=== PATIENT | female | born 2000 | race Caucasian/White ===

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

== ENCOUNTER → 2020-03-31 | Outpatient (CLI) | payer OTHER ==
[~2020-03-31] MED LIST changes: +PROM25 PO
== END | disposition home or self-care (01) ==
LOC: LAB SHORT 16:19 → LAB 16:19
DX: R30.0 Dysuria (principal)
CPT/HCPCS: 87086

== ENCOUNTER → 2020-04-15 | Outpatient (CLI) | payer OTHER ==
[~2020-04-15] MED LIST changes: +Percocet 5-3251 EACH PO
--- NOTE | 2020-05-16 14:16 | NUR ---
PPFU R/S MOM 45 MINUTES LATE FOR PPFU APPT. I SAW BABY TODAY AND MOM WAS RESCHEDULED FOR TOMOROW WITH BABY AT 2430
== END | disposition home or self-care (01) ==
LOC: LAB SHORT 16:15 → LAB 16:15
DX: R82.90 Unspecified abnormal findings in urine (principal)
CPT/HCPCS: 87086

== ENCOUNTER → 2020-04-20 | Outpatient (CLI) | payer OTHER | END | disposition home or self-care (01) | LOC: LAB 17:29 → LAB SHORT 17:29 | DX: Z34.83 Encounter for supervision of other normal pregnancy, third trimester (principal) | CPT/HCPCS: 87081; 87653 ==

== ENCOUNTER → 2020-04-27 | Outpatient (CLI) | payer OTHER | END | disposition home or self-care (01) | LOC: LAB 15:30 → LAB SHORT 15:30 | DX: R82.90 Unspecified abnormal findings in urine (principal) | CPT/HCPCS: 87086 ==

== ENCOUNTER 2020-05-12 05:43 | Inpatient (IN) | payer OTHER ==
[~2020-05-12] VITALS: Ht 160 cm; Wt 115.6 kg
[~2020-05-12 05:43] MED LIST changes: -Percocet 5-3251 EACH PO
[2020-05-12 06:33] LABS: BASOPHILS ABSOLUTE AUTO 0.02 K/mm3 (0.00-0.23); BASOPHILS PERCENT AUTO 0 % (0-2); EOSINOPHILS ABSOLUTE AUTO 0.14 K/mm3 (0.00-0.68); EOSINOPHILS PERCENT AUTO 2 % (0-6); Hematocrit 33.1 % (33.0-51.0); IMMATURE GRAN ABSOLUTE AUTO 0.02 K/mm3 (0.00-0.10); IMMATURE GRAN PERCENT AUTO 0 % (0-1); LYMPHOCYTES ABSOLUTE AUTO 1.95 K/mm3 (0.84-5.20); LYMPHOCYTES PERCENT AUTO 22 % (21-46); MONOCYTES ABSOLUTE AUTO 0.93 K/mm3 (0.16-1.47); MONOCYTES PERCENT AUTO 11 % (4-13); Mean Corpuscular HGB 30.6 pg (26.0-34.0); Mean Corpuscular HGB Conc 33.2 g/dL (31.5-36.5); Mean Corpuscular Volume 92 fL (80-100); Mean Platelet Volume 10.6 fL (9.1-12.4); NEUTROPHILS ABSOLUTE AUTO 5.72 K/mm3 (1.96-9.15); NEUTROPHILS PERCENT AUTO 65 % (41-73); Platelet Count 233 K/mm3 (150-400); RDW Coefficient Variation 12.2 % (11.7-14.2); RDW Standard Deviation 41.1 fL (35.1-46.3); White Blood Cell Count 8.78 K/mm3 (4.00-11.30)
--- NOTE | 2020-05-12 08:25 | NUR ---
05/12/20 0825 Atiya Sneed 0800 DELIVERY VIABLE MALE WEIGHT [id number] 7# 13 OZ, HEAD 14 INCHES, CHEST 14 INCHES, CHEST 13.75 INCHES, LENGTH 21 INCHES, APGARS 7/8, UMBILICAL CORD BLOOD COLLECTED FOR TYPE AND RH GIVEN TO Mau LEE RN, DR BURNS AND DR DIXON (RESIDENTS) PRESENT FOR DELIVERY
[2020-05-12 08:34] LABS: PCO2 Cord - Arterial 42 mmHg (40-50); PO2 Cord - Arterial 18 mmHg (16-20); pH Cord - Arterial 7.36 (7.28-7.35)
[2020-05-12 08:36] LABS: PCO2 Cord - Venous 42 mmHg (40-50); PO2 Cord - Venous 26 mmHg (28-32); pH Umbilical Cord - Venous 7.34 (7.26-7.35)
--- NOTE | 2020-05-12 14:33 | NUR ---
RN ROUNDED TO HELP W/ . INSTRUCT/DEMO WIDENING LATCH, CORRECT POSITIONING, AND NIPPLE SHAPE AFTER FEEDS. INSTRUCT/DEMO HAND EXPRESSION. TALKED W/ PT ABOUT OFFERING NB THE BREAST EVERY 2-3 HOURS, IF NB WILL NOT LATCH TO HAND EXPRESS COLOSTRUM TO NB, SUPPLY AND DEMAND OF BREASTMILK. PT VERBALIZED UNDERSTANDING, DENIES ANY FURTHER QUESTIONS OR CONCERNS.
--- NOTE | 2020-05-12 15:30 | NUR ---
ASSUMED CARE OF PT, REPORTING PAIN 8/10 MEDICATED BY VIRGILIO Red, DRESSING ASSESET WITH AD NO CHANGE SINCE PACU. NB AT BREAST.
--- NOTE | 2020-05-12 15:32 | NUR ---
Report to Brianne Castillo RN and Abner Douglas RN.
[2020-05-13 04:50] LABS: BASOPHILS ABSOLUTE AUTO 0.03 K/mm3 (0.00-0.23); BASOPHILS PERCENT AUTO 0 % (0-2); EOSINOPHILS ABSOLUTE AUTO 0.09 K/mm3 (0.00-0.68); EOSINOPHILS PERCENT AUTO 1 % (0-6); Hematocrit 29.4 % (33.0-51.0); Hemoglobin 9.9 g/dL (11.5-16.0); IMMATURE GRAN ABSOLUTE AUTO 0.04 K/mm3 (0.00-0.10); IMMATURE GRAN PERCENT AUTO 0 % (0-1); LYMPHOCYTES PERCENT AUTO 21 % (21-46); MONOCYTES ABSOLUTE AUTO 1.17 K/mm3 (0.16-1.47); MONOCYTES PERCENT AUTO 10 % (4-13); Mean Corpuscular HGB 31.3 pg (26.0-34.0); Mean Corpuscular HGB Conc 33.7 g/dL (31.5-36.5); Mean Corpuscular Volume 93 fL (80-100); Mean Platelet Volume 10.1 fL (9.1-12.4); NEUTROPHILS PERCENT AUTO 68 % (41-73); Platelet Count 211 K/mm3 (150-400); RDW Coefficient Variation 12.3 % (11.7-14.2); RDW Standard Deviation 41.8 fL (35.1-46.3); Red Blood Cell Count 3.16 M/mm3 (3.80-5.20); White Blood Cell Count 12.03 K/mm3 (4.00-11.30)
--- NOTE | 2020-05-13 09:00 | NUR ---
MOM IN BED, REPORTS DOING WELL, WILL MEDICATE FOR PAIN PRN. PARENTS NEEDING SOME TEACHING RELATED TO BOTTLE FEEDING NB. NB VERY SLEEP/SPITTY. PLAN TO WORK ON FEEDS AND PAPERWORK TODAY.
--- NOTE | 2020-05-13 15:45 | NUR ---
PT UP AMBULATING IN THE KIMBALL. SONY WELL.
--- NOTE | 2020-05-13 16:02 | NUR ---
REMINDED PT FOR THE 4TH TIME TO PUMP, STILL HASN'T STARTED.
--- NOTE | 2020-05-13 17:11 | NUR ---
PT FINALLY PUMPED. ENCOURGED TO PUMP Q3-4 HOURS.
--- NOTE | 2020-05-13 17:45 | NUR ---
REPORT TO LAURO HOLCOMB.
[2020-05-14] MEDS ORDERED: Percocet 5-3251 EACH PO ×2 (08:23)
[2020-05-14] MEDS ORDERED: IBUP800 PO ×2 (08:24)
--- NOTE | 2020-05-14 15:21 | NUR ---
DISCHARGE SUMMARY PT AND DISCHARGED TO HOME. ALL DISCHARGE TEACHING COMPLETED, ALL QUESTIONS ANSWERED. PT VERBALIZED UNDERSTANDING. PT AGREES TO TAKE MEDICATIONS PRESCRIBED, FOLLOW UP WITH OB AND TO ATTEND PPFU APPOINTMENT SCHEDULED FOR 05/16/20 AT 1300. IV DC'D AND BELONGINGS RETURNED. PT LEFT ROOM WITH STEADY GAIT AT 1220 WITH RN ESCORT.
== END 2020-05-14 12:20 | disposition home or self-care (01) | DRG 788 ==
LOC: BC 05:43 → PRE IP 07:30 → BC 19:54
PROVIDERS: ADMIT Obstetrics & Gynecology
PROC: 10D00Z1 Extraction of Products of Conception, Low, Open Approach (ICD-10-PCS; principal; 2020-05-12 07:30)
PROC: 3E0234Z Introduction of Serum, Toxoid and Vaccine into Muscle, Percutaneous Approach (ICD-10-PCS; 2020-05-14)
DX: O34.211 Maternal care for low transverse scar from previous cesarean delivery (principal); O99.824 Streptococcus B carrier state complicating childbirth; Z37.0 Single live birth; O99.214 Obesity complicating childbirth; E66.01 Morbid (severe) obesity due to excess calories; Z3A.39 39 weeks gestation of pregnancy; Z23 Encounter for immunization
CPT/HCPCS: 36415; 82803; 85025; 86850; 86900; 86901; 90674; A9270; J0694; J1100; J1885; J2405; J2590; J2765; J3010; J7120; Q2038

== ENCOUNTER 2020-11-14 01:06 | Emergency (ER) | payer OTHER ==
[~2020-11-14] VITALS: Ht 160 cm; Wt 108.4 kg
[~2020-11-14 01:06] MED LIST changes: +Percocet 5-3251 EACH PO
== END 2020-11-14 03:30 | disposition home or self-care (01) ==
LOC: ER 01:06
DX: M94.0 Chondrocostal junction syndrome [Tietze] (principal)
CPT/HCPCS: 71100; 99283-25; A9270

== ENCOUNTER 2020-11-28 12:43 | Emergency (ER) | payer OTHER ==
[~2020-11-28] VITALS: Ht 160 cm; Wt 108.4 kg
== END 2020-11-28 14:06 | disposition home or self-care (01) ==
LOC: ER 12:43
DX: M94.0 Chondrocostal junction syndrome [Tietze] (principal)
CPT/HCPCS: 71101; 99283-25

== ENCOUNTER 2021-01-30 13:04 | Inpatient (IN) | payer OTHER ==
[2021-01-30 13:40] LABS: Source, Urine Clean Catch
[2021-01-30 13:47] LABS: BASOPHILS ABSOLUTE AUTO 0.08 K/mm3 (0.00-0.23); BASOPHILS PERCENT AUTO 1 % (0-2); EOSINOPHILS ABSOLUTE AUTO 0.03 K/mm3 (0.00-0.68); EOSINOPHILS PERCENT AUTO 0 % (0-6); IMMATURE GRAN ABSOLUTE AUTO 0.07 K/mm3 (0.00-0.10); IMMATURE GRAN PERCENT AUTO 0 % (0-1); LYMPHOCYTES ABSOLUTE AUTO 2.76 K/mm3 (0.84-5.20); LYMPHOCYTES PERCENT AUTO 17 % (21-46); MONOCYTES ABSOLUTE AUTO 1.82 K/mm3 (0.16-1.47); MONOCYTES PERCENT AUTO 11 % (4-13); Mean Corpuscular Volume 79 fL (80-100); NEUTROPHILS ABSOLUTE AUTO 11.37 K/mm3 (1.96-9.15); NEUTROPHILS PERCENT AUTO 71 % (41-73); Platelet Count 356 K/mm3 (150-400); RDW Coefficient Variation 12.7 % (11.7-14.2); RDW Standard Deviation 35.8 fL (35.1-46.3); White Blood Cell Count 16.13 K/mm3 (4.00-11.30)
[2021-01-30 13:48] LABS: Appearance, Urine Cloudy (Clear); Blood, Urine 2+ (Neg); Color, Urine Amber (P-Yellow); Glucose Qualitative, Urine Neg (Neg); Ketones, Urine 4+ (Neg); Leukocyte Esterase, Urine 2+ (Neg); Nitrite, Urine Pos (Neg); Protein, Urine 3+ (Neg); Specific Gravity, Urine 1.015 (1.003-1.022); Urobilinogen, Urine 3+ (Normal); pH, Urine 6.5 (5.0-8.0)
[2021-01-30] MEDS ORDERED: CIME400 PO (13:50)
[2021-01-30] MEDS ORDERED: ONDA4ODT MM (13:51)
[2021-01-30 14:00] LABS: Bilirubin, Urine 2+ (Neg)
[2021-01-30 14:04] LABS: Other Crystals Many /hpf
[2021-01-30 14:05] LABS: Bacteria Many /hpf; Mucus Mod (0-Heavy); Red Blood Cells, Urine 0-2 /hpf (0-2); Squamous Epithelial Cells Many /hpf (Few)
[2021-01-30 14:32] LABS: Alanine Aminotransfer (ALT/SGP 96 U/L (12-78); Albumin, Blood 4.9 g/dL (3.4-5.0); Albumin/Globulin Ratio 1.1 (0.8-1.8); Alk Phos 70 U/L (50-136); Anion Gap 20 mmol/L (6-16); Aspartate Aminotrans (AST/SGOT 34 U/L (12-37); Bilirubin, Total 1.4 mg/dL (0.1-1.0); Blood Urea Nitrogen 15 mg/dL (8-24); Bun/Creatinine Ratio 22.8 (12.0-20.0); CO2, Blood 23 mmol/L (21-32); Chloride, Blood 86 mmol/L (98-108); Creatinine, Blood 0.66 mg/dL (0.40-1.00); Globulin, Blood 4.4 g/dL (2.2-4.0); Glomerular Filtration Rate >60 (60-); Glucose, Blood 123 mg/dL (70-99); Potassium, Blood 2.3 mmol/L (3.5-5.5); Sodium, Blood 129 mmol/L (136-145); Total Protein, Blood 9.3 g/dL (6.4-8.2)
[2021-01-30 14:52] LABS: Hemoglobin 20.2 g/dL (11.5-16.0); Mean Corpuscular HGB 29.7 pg (26.0-34.0)
[2021-01-30 14:53] LABS: Mean Corpuscular HGB Conc 37.4 g/dL (31.5-36.5)
[2021-01-30] MEDS ORDERED: PRENATAL TABLE1 EAC2 PO (16:45)
[2021-01-30] MEDS ORDERED: METO10 PO (16:45)
[2021-01-30] MEDS ORDERED: PROM12.5S PR (16:45)
[2021-01-30] MEDS ORDERED: PANT20 PO (16:46)
[2021-01-30 17:20] LABS: G. vaginalis (DNA Probe) Positive (NEGATIVE); T. vaginalis (DNA Probe) Negative (NEGATIVE)
[2021-01-30 17:21] LABS: Candida species (DNA Probe) Negative (NEGATIVE)
[2021-01-30 20:31] LABS: SARS-Cov-2 (COVID-19) PCR, MMC POSITIVE (NEGATIVE)
[2021-01-30 22:47] LABS: Anion Gap 13 mmol/L (6-16); Blood Urea Nitrogen 13 mg/dL (8-24); Bun/Creatinine Ratio 23.7 (12.0-20.0); CO2, Blood 27 mmol/L (21-32); Calcium, Blood 9.5 mg/dL (8.5-10.1); Chloride, Blood 89 mmol/L (98-108); Creatinine, Blood 0.55 mg/dL (0.40-1.00); Glomerular Filtration Rate >60 (60-); Glucose, Blood 102 mg/dL (70-99); Potassium, Blood 2.4 mmol/L (3.5-5.5); Sodium, Blood 129 mmol/L (136-145)
[2021-01-30 23:48] LABS: Magnesium, Blood 2.1 mg/dL (1.6-2.4)
[2021-01-31 06:25] LABS: Anion Gap 12 mmol/L (6-16); Blood Urea Nitrogen 10 mg/dL (8-24); Bun/Creatinine Ratio 16.5 (12.0-20.0); CO2, Blood 25 mmol/L (21-32); Calcium, Blood 9.6 mg/dL (8.5-10.1); Chloride, Blood 92 mmol/L (98-108); Creatinine, Blood 0.61 mg/dL (0.40-1.00); Glomerular Filtration Rate >60 (60-); Glucose, Blood 135 mg/dL (70-99); Potassium, Blood 2.7 mmol/L (3.5-5.5); Sodium, Blood 129 mmol/L (136-145)
--- NOTE | 2021-01-31 06:27 | NUR ---
0530 patient refused half of final bag of potassium chloride d/t burning at the IV site. Tried heat at the site during infusion. Patient stated that helped, but refused rest of bag.
--- NOTE | 2021-01-31 07:00 | NUR ---
0650 Administered 0900 dose of oral potassium early per physician telephone order
[2021-01-31 22:08] LABS: CHLAMYDIA TRACHOMATIS, NAA Negative (Negative)
[2021-02-01 06:32] LABS: Anion Gap 8 mmol/L (6-16); Blood Urea Nitrogen 6 mg/dL (8-24); CO2, Blood 25 mmol/L (21-32); Calcium, Blood 8.6 mg/dL (8.5-10.1); Chloride, Blood 103 mmol/L (98-108); Creatinine, Blood 0.55 mg/dL (0.40-1.00); Glomerular Filtration Rate >60 (60-); Glucose, Blood 90 mg/dL (70-99); Potassium, Blood 3.1 mmol/L (3.5-5.5); Sodium, Blood 136 mmol/L (136-145)
--- NOTE | 2021-02-01 07:56 | NUR ---
tele patient monitor called, reports pt is getting tachycardic, just thru up about min ago and now is going to try to take a few bites of breakfast, has gatorade, ice chips and ice water at bedside,
--- NOTE | 2021-02-01 08:13 | NUR ---
dr saini has called twice, first was for update and planned to come in a change some orders, but then called back and reported hospitalist was managing pt, and they would be in to see pt after EKG was done.
--- NOTE | 2021-02-01 08:33 | NUR ---
DR PARK HERE, HE WILL COME BACK BETWEEN [phone] WHEN THE EKG IS BACK. PLAN TO SL PT CURRENTLY AND CONTINUE WITH IV MEDICATIONS UNTIL WE GET EKG RESULTS. WE ARE TO ENCOURAGED PO FLUIDS WITH PT.
--- NOTE | 2021-02-01 08:42 | NUR ---
pt sl, equipment service technician at bedside
--- NOTE | 2021-02-01 10:32 | NUR ---
pt reports was able to get some ice chips in, but when she took the magnesium and and vomited them, she reports the pills were much smaller, she still has potassium at her to take
--- NOTE | 2021-02-01 10:50 | NUR ---
CP obt is taking pt some snacks to eat that she has requested
--- NOTE | 2021-02-01 13:09 | NUR ---
pt reports doing fine, almost has all her potassium down. it makes her nauseaed. was able to keep some lunch down with a few bites.
--- NOTE | 2021-02-01 13:20 | NUR ---
DR JOLLEY AT BEDSIDE TALKING WITH PATIENT.
[2021-02-01] MEDS ORDERED: MICO100S VAG (13:55)
--- NOTE | 2021-02-01 14:15 | NUR ---
PT C/O IV HURTING, FLUSHES EASILY, I BELIEVE THE PAIN IS FROM BENDING HER ARM AND JAMMING THE CATH INTO HER SKIN, ENCOURAGED TO KEEP HER ARM STRAIGHT. WITH KEEPING HER ARM STRAIGHT AND FLUSHING IT, REPORTS FEELS BETTER
--- NOTE | 2021-02-01 14:32 | NUR ---
FRESH ICE CHIPS, AND APPLE JUICE AT BEDSIDE, PER PT REQUEST, ABLE TO SIP ON THINGS AND HOLD IT DOWN. PT REPORTS FEELS COMFORTABLE GOING HOME, FEELS LIKE SHE CAN DO THIS AT HOME. TALKED ABOUT QUARTINE, TALKED ABOUT EATING SMALL AMOUNTS, TAKING SMALL SIPS, HAS THE FLUTTER VALVE AND IS AT BEDSIDE, WAS GIVEN TO HER THIS MORNING WITHINSTRUCTIONS BY RT OVER THE VOCERA. PT VERBALIZED UNDERSTANDING OF SUING THEM.
--- NOTE | 2021-02-01 14:48 | NUR ---
pt reports just used her flutter valve, but hasnt used the IS in a while, just took pt 1/2 sandwich,pt has been able to hold down lots of snacking, more than the pt is aware, she east 5-6 bites of a 1/2 sandwich, has had 4-5 1/2 sandwiches a today plus breakfast and lunch
--- NOTE | 2021-02-01 14:59 | NUR ---
was going to give decadron to pt,dr angeles here reports stop and not give, going to send pt home
[2021-02-01] MEDS ORDERED: FAMO20 PO (15:18)
--- NOTE | 2021-02-01 15:21 | NUR ---
DR PARK DC PT, WILL CAN DR PARK SCRIPTS TO [facility] CHO[facility]
--- NOTE | 2021-02-01 16:05 | NUR ---
dc home with instructions, encourage to call [facility] for more information, went over hyperemisis instructions and covid quarntine instructions, pt verbilzed understanding. iv power glide dcd pressure applied for 3 minutes, no bleeding, pt ride is here pt is wanting to go, but wants ice chips and apple juice. sent home with cup of ice chips and an apple juice, scripts from dr saini and dr angeles were called into [facility] per pt choice of pharmacy. left a message
== END 2021-02-01 16:00 | disposition home or self-care (01) | DRG 831 ==
LOC: ER 13:04 → ERHOLD 13:05 → BC 13:05 → ERHOLD 13:05 → BC 23:54 → MEDS 02-01 15:13 → BC 02-01 15:27
PROVIDERS: Emergency Medicine; Internal Medicine; Obstetrics & Gynecology; Student in an Organized Health Care Education/Training Program; ADMIT Internal Medicine
PROC: 8E0ZXY6 Isolation (ICD-10-PCS; principal; 2021-01-30)
DX: O21.1 Hyperemesis gravidarum with metabolic disturbance (principal); U07.1 COVID-19; O98.511 Other viral diseases complicating pregnancy, first trimester; O23.41 Unspecified infection of urinary tract in pregnancy, first trimester; O23.591 Infection of other part of genital tract in pregnancy, first trimester; O99.321 Drug use complicating pregnancy, first trimester; Z3A.09 9 weeks gestation of pregnancy; Z79.899 Other long term (current) drug therapy; O99.281 Endocrine, nutritional and metabolic diseases complicating pregnancy, first trimester; B96.89 Other specified bacterial agents as the cause of diseases classified elsewhere; O99.211 Obesity complicating pregnancy, first trimester; E66.01 Morbid (severe) obesity due to excess calories; K59.00 Constipation, unspecified; O99.611 Diseases of the digestive system complicating pregnancy, first trimester; O9A.211 Injury, poisoning and certain other consequences of external causes complicating pregnancy, first trimester; T45.0X5A Adverse effect of antiallergic and antiemetic drugs, initial encounter; O99.891 Other specified diseases and conditions complicating pregnancy; R94.31 Abnormal electrocardiogram [ECG] [EKG]; F12.90 Cannabis use, unspecified, uncomplicated
CPT/HCPCS: 36415; 76801; 80048; 80053; 81001; 83690; 83735; 84132; 84702; 84703; 85025; 85379; 86850; 86900; 86901; 87086; 87480; 87491; 87510; 87591; 87660; 93005; 93010; 96365; 96366; 96368; 96375; 99285-25; A9270; C1751; J0696; J0780; J1100; J1650; J2550; J2765; J3480; J7070; J7121; U0004

== ENCOUNTER 2021-02-05 05:31 | Emergency (ER) | payer OTHER ==
[~2021-02-05] VITALS: Ht 160 cm; Wt 83.9 kg
[~2021-02-05 05:31] MED LIST changes: +CIME400 PO; +FAMO20 PO; +METO10 PO; +MICO100S VAG; +ONDA4ODT MM; +PANT20 PO; +PRENATAL TABLE1 EAC2 PO; +PROM12.5S PR
[2021-02-05 08:53] LABS: BASOPHILS ABSOLUTE AUTO 0.02 K/mm3 (0.00-0.23); BASOPHILS PERCENT AUTO 0 % (0-2); EOSINOPHILS ABSOLUTE AUTO 0.15 K/mm3 (0.00-0.68); EOSINOPHILS PERCENT AUTO 3 % (0-6); Hematocrit 36.6 % (33.0-51.0); Hemoglobin 12.7 g/dL (11.5-16.0); IMMATURE GRAN ABSOLUTE AUTO 0.01 K/mm3 (0.00-0.10); IMMATURE GRAN PERCENT AUTO 0 % (0-1); LYMPHOCYTES ABSOLUTE AUTO 2.08 K/mm3 (0.84-5.20); LYMPHOCYTES PERCENT AUTO 40 % (21-46); MONOCYTES ABSOLUTE AUTO 0.76 K/mm3 (0.16-1.47); MONOCYTES PERCENT AUTO 15 % (4-13); Mean Corpuscular HGB 30.3 pg (26.0-34.0); Mean Corpuscular HGB Conc 34.7 g/dL (31.5-36.5); Mean Corpuscular Volume 87 fL (80-100); Mean Platelet Volume 11.9 fL (9.1-12.4); NEUTROPHILS ABSOLUTE AUTO 2.14 K/mm3 (1.96-9.15); NEUTROPHILS PERCENT AUTO 42 % (41-73); Platelet Count 148 K/mm3 (150-400); RDW Coefficient Variation 13.2 % (11.7-14.2); RDW Standard Deviation 41.2 fL (35.1-46.3); Red Blood Cell Count 4.19 M/mm3 (3.80-5.20); White Blood Cell Count 5.16 K/mm3 (4.00-11.30)
[2021-02-05 09:27] LABS: Alanine Aminotransfer (ALT/SGP 79 U/L (12-78); Alk Phos 51 U/L (50-136); Anion Gap 7 mmol/L (6-16); Aspartate Aminotrans (AST/SGOT 30 U/L (12-37); Bilirubin, Total 0.3 mg/dL (0.1-1.0); Blood Urea Nitrogen 5 mg/dL (8-24); Bun/Creatinine Ratio 9.2 (12.0-20.0); CO2, Blood 27 mmol/L (21-32); Calcium, Blood 8.7 mg/dL (8.5-10.1); Chloride, Blood 108 mmol/L (98-108); Creatinine, Blood 0.54 mg/dL (0.40-1.00); Glomerular Filtration Rate >60 (60-); Glucose, Blood 85 mg/dL (70-99); Potassium, Blood 2.8 mmol/L (3.5-5.5); Sodium, Blood 142 mmol/L (136-145)
[2021-02-05 09:33] LABS: Beta HCG, Quantitative, Serum 43505 mIU/mL (0-3)
[2021-02-05 09:34] LABS: Source, Urine Clean Catch
[2021-02-05 09:38] LABS: Bilirubin, Urine Neg (Neg); Blood, Urine 5+ (Neg); Glucose Qualitative, Urine Neg (Neg); Ketones, Urine 1+ (Neg); Leukocyte Esterase, Urine 2+ (Neg); Nitrite, Urine Neg (Neg); Protein, Urine 2+ (Neg); Urobilinogen, Urine 1+ (Normal)
[2021-02-05 09:54] LABS: Appearance, Urine Hazy (Clear); Color, Urine Yellow (P-Yellow); Mucus Mod (0-Heavy)
[2021-02-05 09:56] LABS: Bacteria Mod /hpf; Squamous Epithelial Cells Many /hpf (Few)
[2021-02-05] MEDS ORDERED: CEPH500 PO (10:38)
== END 2021-02-05 11:30 | disposition home or self-care (01) ==
LOC: ER 05:31
PROVIDERS: Emergency Medicine
DX: O20.0 Threatened abortion (principal); Z3A.01 Less than 8 weeks gestation of pregnancy; O23.41 Unspecified infection of urinary tract in pregnancy, first trimester; O98.511 Other viral diseases complicating pregnancy, first trimester; U07.1 COVID-19
CPT/HCPCS: 36415; 76816; 80053; 81001; 84702; 85025; 86900; 86901; 87086; 99284-25; A9270